=== PATIENT | male | born 1935 | race Caucasian/White ===

== ENCOUNTER 2016-10-14 05:01 | Inpatient (IN) | payer MEDICARE ==
[2016-10-03 12:29] LABS: BASOPHILS 0.4 %; BASOPHILS ABSOLUTE 0.02 10/3/uL (0.0-0.16); EOSINOPHILS 3.2 %; EOSINOPHILS ABSOLUTE 0.18 10/3/uL (0.0-0.53); HEMATOCRIT 34.4 % (40.0-51.0); HEMOGLOBIN 11.5 g/dL (13.6-17.8); IMMATURE GRANULOCYTES 0.2 %; IMMATURE GRANULOCYTES ABSOLUTE 0.01 10/3/uL (0.0-0.11); LYMPHOCYTES 29.3 %; LYMPHOCYTES ABSOLUTE 1.66 10/3/uL (0.67-4.30); MEAN CORPUS HGB CONC 33.4 g/dL (32.0-36.0); MEAN PLATELET VOLUME 10.1 fL (9.2-13.0); MONOCYTES 12.4 %; NEUTROPHILS 54.5 %; NEUTROPHILS ABSOLUTE 3.09 10/3/uL (2.02-8.40); PLATELET COUNT 218 10/3/uL (150-400); RED CELL COUNT 3.27 10/6/uL (4.7-6.1); WHITE BLOOD CELLS 5.7 10/3/uL (4.5-10.5)
[2016-10-03 12:32] LABS: MANUAL DIFF NO %; MEAN CORPUSCULAR HEMOGLOB 35.2 pg (26.0-34.0); MEAN CORPUSCULAR VOLUME 105.2 fL (80-100)
[2016-10-03 12:34] LABS: INTERNATIONAL NORMAL RATI 1.1 UNITS (-); PROTIME (NOT ORD) 13.7 SEC (12.0-14.5)
[2016-10-03 12:46] LABS: A/G RATIO 1.1 (0.7-1.9); ALKALINE PHOSPHATASE 84 U/L (45-117); CHLORIDE, SERUM 103 MMOL/L (96-112); CO2 (CARBON DIOXIDE) 26 MMOL/L (24-34); GFR AFRICAN AMERICAN 50 ML/MIN (>=60); GFR NON AFRICAN AMERICAN 43 ML/MIN (>=60); GLOBULIN 3.5 G/DL (2.5-4.1); GLUCOSE, SERUM 135 MG/DL (60-99); SGOT(AST) 37 U/L (5-40); SGPT(ALT) 34 U/L (5-65); SODIUM, SERUM 141 MMOL/L (135-148); TOTAL BILIRUBIN 0.7 MG/DL (0-1.2); TOTAL PROTEIN 7.5 G/DL (6.0-8.5)
[2016-10-03 12:48] LABS: BUN (BLOOD UREA NITROGEN) 29 MG/DL (6-23); CALCIUM, SERUM 10.2 MG/DL (8.5-10.4)
[2016-10-03 12:55] LABS: B NATRIURETIC PEPTIDE (BNP) 117.9 PG/ML (< 100.0)
[2016-10-03 12:58] LABS: ASCORBIC ACID (UR NOT ORDER) NEG (NEG); BILIRUBIN, URINE NEGATIVE (NEG); KETONE, URINE NEGATIVE (NEG); LEUKOCYTE ESTERASE(NOT OR NEG (NEG); WBC (NOT ORDERED) (RFLEX) < 1 (0-5)
[2016-10-03 22:10] LABS: GLYCOHEMOGLOBIN (HbA1c) 6.3 % (4.7-6.1)
--- NOTE | ~2016-10-14 | OP ---
Record Of Operation [address] [place]. [address] NAME: VIKKI LEMUS : 35 STATUS : ADM IN PAT#: [id number] AGE: 81 ADM/REG DATE : 10/14/16 MR#: [id number] REPORT SERV DATE: 10/14/16 DICTATED BY: PEÑA DIOR DATE: 10/14/16 REPORT STATUS : Draft TRANSCRIBED BY: MODL DATE: 10/14/16 DATE OF PROCEDURE: 10/14/2016 REPORT TITLE: Transcatheter Valve Implant Note BODY AFTER REPORT TITLE: PRIMARY LOCOMOTIVE ENGINEER ELECTRIC: Rod Alvarado M.D. PROCEDURES PERFORMED: 1. Transcatheter aortic valve implantation with a 34 mm Medtronic Evolut R from a right transfemoral approach. 2. Temporary transvenous pacemaker placement, left femoral vein to right ventricle. 3. Ascending aortogram. 4. Iliac angiogram. 5. ProGlide closure x2, right femoral artery. 6. ProGlide closure x1, left femoral artery. 7. Transthoracic echocardiography. SURGEONS: 1. Peña Dior M.D. 2. Flavio Vidal M.D. 3. Ty Cavazos M.D. 4. Dr. Camejo. ASSISTANTS: 1. Anila. 2. Trudy El M.D. 3. Keny Davidson M.D. SPECIMEN REMOVED: None. ANESTHESIA: MAC and local. ESTIMATED BLOOD LOSS: Less than 50 mL. FLUOROSCOPY TIME: 19.5 minutes, mGy 2321. CONTRAST: 100 mL, nonionic. COMPLICATIONS: None. PREOPERATIVE DIAGNOSES: 1. Severe aortic stenosis with suuo-zz-oqyjlhim aortic insufficiency by echocardiography, transesophageal echo, and dobutamine echo. 2. High surgical risk with STS score of 6.9% mortality and 29.4% morbidity and mortality. Record Of [address] [place]. [address] NAME: VIKKI LEMUS : 35 STATUS : ADM IN PAT#: [id number] AGE: 81 ADM/REG DATE : 10/14/16 MR#: [id number] REPORT SERV DATE: 10/14/16 DICTATED BY: PEÑA DIOR DATE: 10/14/16 REPORT STATUS : Draft TRANSCRIBED BY: MODL DATE: 10/14/16 He was seen by two cardiac surgeons, Dr. Camejo and Dr. Cavazos, who felt he was at high surgical risk. He had additional risk factors of coronary artery disease with previous coronary artery bypass grafting and patent grafts underlying the sternum. 3. Acute on chronic systolic congestive heart failure. 4. Moderately-depressed left ventricular systolic function with left ventricular ejection fraction of 35%. 5. Inadequate contractile reserve by dobutamine echo. 6. Coronary artery disease, status post coronary artery bypass grafting of reportedly five vessels in 1997 in [place]. 7. Status post permanent pacemaker placement, Saint Edmund device. 8. Prostate cancer with bony metastasis, followed at [place], [place]. 9. Cardiac risk factors including diabetes, hypertension, cholesterol, and former tobacco use. POSTOPERATIVE DIAGNOSES: 1. Severe aortic stenosis with dpdp-gc-bzptrnrt aortic insufficiency by echocardiography, transesophageal echo, and dobutamine echo. 2. High surgical risk with STS score of 6.9% mortality and 29.4% morbidity and mortality. He was seen by two cardiac surgeons, Dr. Camejo and Dr. Cavazos, who felt he was at high surgical risk. He had additional risk factors of coronary artery disease with previous coronary artery bypass grafting and patent grafts underlying the sternum. 3. Acute on chronic systolic congestive heart failure. 4. Moderately-depressed left ventricular systolic function with left ventricular ejection fraction of 35%. 5. Inadequate contractile reserve by dobutamine echo. 6. Coronary artery disease, status post coronary artery bypass grafting of reportedly five vessels in 1997 in [place]. 7. Status post permanent pacemaker placement, Saint Edmund device. 8. Prostate cancer with bony metastasis, followed at [place], [place]. 9. Cardiac risk factors including diabetes, hypertension, cholesterol, and former tobacco use. 10.No significant aortic insufficiency postoperatively. DATA FOR THE VALVE REGISTRY: Time of valve deployment 0942 hours. Total rapid pacing time is 0. Preprocedure: Mean gradient of 25, peak gradient of 30, cardiac output 7.3 L/minute, aortic valve area 0.9 sq cm. Postprocedure: Mean gradient of 0, peak gradient of 0, cardiac output of 6.9 L/minute, AI index was 28. BACKGROUND: Mr. Lemus is a very pleasant 81-year-old white man, patient of my partner, Dr. Jenny, with aortic stenosis. He has been undergoing evaluation for transcatheter valve implantation. He has known about aortic stenosis for the past year. He had cardiac catheterization last year, which revealed moderate aortic stenosis. He had progression of aortic stenosis by echo this year and underwent dobutamine echo demonstrating severe fixed aortic stenosis and inadequate contractile reserve. He has been complaining of dyspnea on exertion at less than 50-100 feet. He has had some chest pain, but no dizziness or syncope. He was offered transcatheter aortic valve implantation after discussing the risks, benefits, complications, and alternatives, and he wished to proceed. He was seen by two cardiac Record [place] [address] [place]. [address] NAME: VIKKI LEMUS : 35 STATUS : ADM IN [facility]#: [id number] AGE: 81 ADM/REG DATE : 10/14/16 MR#: [id number] REPORT SERV DATE: 10/14/16 DICTATED BY: PEÑA DIOR DATE: 10/14/16 REPORT STATUS : Draft TRANSCRIBED BY: DINA DATE: 10/14/[address] Camejo and Dr. Cavazos who felt he was at high surgical risk and his STS score likely underestimated risks due to patent underlying saphenous vein grafts. TECHNIQUE: After informed written consent was obtained from Mr. Lemus, he was brought to the hybrid suite on the morning of 10/14/2016 in the fasting state. A time-out was performed and correct patient and operative plan were confirmed. Both groin areas were prepped and draped in the usual sterile fashion. Local anesthesia was accomplished using 1% lidocaine. Using modified Seldinger technique and a micropuncture set, a 6-Beninese sheath was placed in the left femoral artery, 6-Beninese sheath was placed in the left femoral vein, and a 6-Beninese sheath was placed in the right femoral artery, all with excellent blood return. The sheaths were double flushed and left in place. Using the micro set, femoral angiograms were performed which demonstrated good sticks in the common femoral artery, thought suitable for closure. Next, a temporary transvenous pacemaker was placed from the left femoral vein to the right ventricle and the threshold was checked, which was less than 0.8 milliamps. This was set aside. Next, a pigtail catheter was advanced to the central aorta under fluoroscopic guidance. Guidewire was withdrawn. Catheter was double flushed. Pressure recording was obtained. The valve angle was obtained. The patient was heparinized to an ACT of approximately 250. Next, the 6-Beninese AL1 diagnostic catheter was used and a straight wire was used to cross the aortic valve. This occurred with relative ease. The catheter was then brought to the LV position and exchanged over an exchange J guidewire for a [place] dual-lumen pigtail catheter. Simultaneous LV and aortic pressures were then obtained. Cardiac output was then performed. A preshaped Lunderquist double curve wire was placed in the left ventricle and the catheter was withdrawn from the body. Next, the right femoral artery sheath was removed, and using a dilator, the [employer] in-line sheath was placed in the right femoral artery and the CoreValve Evolut R 34 mm valve was selected. This was viewed under fluoroscopy. The paddles looked good. The valve was then advanced through the sheath to the descending aorta and then advanced around the aortic arch to the aortic valve position. Positioning was confirmed and the angles were changed such that the parallax was eliminated. Deployment sequence was then commenced initially slowly with test injections to be sure the valve appeared to be in proper position, approximately 2 mm depth. Once the valve had reached a critical deployment, pressure fell, the valve was deployed more rapidly until it was near disconnection and the pressure had recovered. The valve was then deployed very slowly using test injections. Once the valve had been completely deployed, test injection revealed some aortic insufficiency. This was thought to be possibly due to the wire. The wire was then brought back across the valve and angiogram was performed which demonstrated no significant aortic insufficiency. Transthoracic echo was then performed which demonstrated good valve function with good opening and no significant AI. The pigtail catheter was then placed across the valve and LV to AO pullback was performed. There was no significant gradient. The valve deployment mechanism and in-line sheath were then removed from the body. The ProGlide sutures were tied with good hemostasis. There was no bleeding and no hematoma. Femoral angiogram was performed which demonstrated no evidence of dissection or distal embolization and good patency of the right common femoral artery. Next, the pacing catheter was removed from the body. The femoral venous sheath was left in place. The left femoral artery sheath was removed and ProGlide closure was deployed with good hemostasis. There was no bleeding and no hematoma. The patient tolerated the procedure well without apparent complication. Record Of Operation [place] [id number] [facility] [place] [address] NAME: ATA,VIKKI AGRAWAL : 35 STATUS : ADM IN [facility]#: [id number] AGE: 81 ADM/REG DATE : 10/14/16 MR#: [id number] REPORT SERV DATE: 10/14/16 DICTATED BY: PEÑA DIOR DATE: 10/14/16 REPORT STATUS : Draft TRANSCRIBED BY: DINA DATE: 10/14/16 He was then returned to his room in good condition for access management and his permanent Saint Edmund pacemaker, plans were made for resumption of his normal settings. The recommendations were for aspirin and Plavix for at least six months and aspirin indefinitely and risk factor modification. ZULMA/DINA Peña Dior M.D. / [id number] CC: Mitali Ochoa MD Mario Mariani, M.D.
--- NOTE | ~2016-10-14 | ECH ---
Echocardiogram [place] [address] [place]. [address] NAME: VIKKI BERUMEN : 35 STATUS : ADM IN PAT#: [id number] AGE: 81 ADM/REG DATE : 10/14/16 MR#: [id number] REPORT SERV DATE: 10/15/16 DICTATED BY: KENY DAVIDSON DATE: 10/14/16 REPORT STATUS : Draft TRANSCRIBED BY: MODL DATE: 10/14/16 INDICATIONS: This is limited echocardiogram for pre and postprocedural assessment immediately before and after transcatheter aortic valve replacement. PROCEDURE: Prior to transcatheter aortic valve replacement with Medtronic core valve, echocardiographic images demonstrated a visually estimated LVEF of 40% with inferior hypocontractility. The aortic valve was trileaflet and sclerotic with severely restricted mobility. The initial mean gradient was 32 mmHg with a calculated aortic valve area of 0.9 cm2. Immediately following successful placement of the transcatheter aortic valve replacement, images revealed a well-positioned bioprosthetic transcatheter aortic valve. There was no aortic regurgitation seen in the parasternal long axis, parasternal short axis, and apical long axis and 5 chamber views. Spectral Doppler velocity peak was 2.4 m/sec with a post mean gradient of 10 mmHg. The postprocedure calculated aortic valve area was approximately 2.5 cm2. COMPLICATIONS: None. Please see the full surgical report for additional details. CONCLUSION: SUCCESSFUL BIOPROSTHETIC TRANSCATHETER AORTIC VALVE REPLACEMENT, MEDTRONIC CORE VALVE, WITH A POSTPROCEDURE MEAN GRADIENT OF 10 MMHG AND AREA OF 2.5 CM2. AEA/DINA Keny Davidson M.D. / [id number] CC: Ty Cavazos M.D.
--- NOTE | ~2016-10-14 | OP ---
Record Of Operation [address] [address] NAME: VIKKI BERUMEN : 35 STATUS : ADM IN PAT#: [id number] AGE: 81 ADM/REG DATE : 10/14/16 MR#: [id number] REPORT SERV DATE: 10/14/16 DICTATED BY: JOSE CAVAZOS DATE: 10/14/16 REPORT STATUS : Draft TRANSCRIBED BY: MODLourdes DATE: 10/14/16 DATE OF PROCEDURE: 10/14/2016 PREOPERATIVE DIAGNOSES: 1. Aortic valve stenosis. 2. History of coronary artery disease status post previous coronary artery bypass grafting. 3. Sreqk-ec-cifswqz diastolic congestive heart failure. 4. Chronic congestive heart failure with poor left ventricular reserve. 5. Type 2 ogi-ucrxred-brkxmnihq diabetes mellitus. 6. Metastatic prostate carcinoma. 7. History of sick sinus syndrome, status post previous pacemaker. 8. Hypertension. 9. Hyperlipidemia. 10.Obesity. POSTOPERATIVE DIAGNOSES: 1. Aortic valve stenosis. 2. History of coronary artery disease status post previous coronary artery bypass grafting. 3. Krspn-qr-diokvac diastolic congestive heart failure. 4. Chronic congestive heart failure with poor left ventricular reserve. 5. Type 2 yii-odevkmj-hazgxedwa diabetes mellitus. 6. Metastatic prostate carcinoma. 7. History of sick sinus syndrome, status post previous pacemaker. 8. Hypertension. 9. Hyperlipidemia. 10.Obesity. PROCEDURE PERFORMED: 1. Right transfemoral transarterial aortic valve replacement using a 3 mm to 4 mm CoreValve (pericardial). 2. Left transfemoral temporary transvenous pacemaker placement. 3. ProGlide closure of the right femoral artery x2, left femoral artery x1. 4. Ascending aortography. 5. Right aortoiliofemoral angiogram with runoff. 6. Transthoracic echocardiography. SURGEONS: 1. Jose Cavazos M.D. 2. Larry Dior M.D. 3. Flavio Vidal M.D. 4. Dr. Camejo. HOSTED SERVICES ANALYST: Keny Davidson M.D. Record Of Operation [address] [address] NAME: VIKKI BERUMEN : 35 STATUS : ADM IN PAT#: [id number] AGE: 81 ADM/REG DATE : 10/14/16 MR#: [id number] REPORT SERV DATE: 10/14/16 DICTATED BY: JOSE CAVAZOS DATE: 10/14/16 REPORT STATUS : Draft TRANSCRIBED BY: DINA DATE: 10/14/16 ANESTHESIA: MAC sedation with Dr. Nieto. DIGITAL CAMPAIGN MANAGER: Rod Alvarado M.D. INDICATIONS: This is an 81-year-old gentleman who underwent previous bypass grafting in 1991. He has been seen by Dr. Alvarado for aortic valve stenosis and has had progression of his shortness of breath. He has been evaluated and echocardiography has documented increasing velocities and gradients across the aortic valve. Most recent echo demonstrated reduced ventricular function with an EF of 45%. His peak velocity was 3.8 m/sec with a mean gradient of 30 mmHg and valve area of 0.9 sq cm. The patient has significant symptomatology with shortness of breath with minimal exertion and problems with early fatigue and poor strength. Because of his previous bypass surgery and history of prostate carcinoma with metastatic disease of the ribcage and age, he was felt to be a poor candidate for open aortic valve replacement. He was discussed at the TAVR Conference and consideration for TAVR was performed. Previous catheterization last November demonstrated patent MAURICE to the LAD and a vein graft patent to the right coronary artery and ramus intermedius with occluded vein graft somewhere on the back of the heart. Predicted risk of mortality by STS database statistics is 6.7%. The patient was felt to be at very elevated risk for surgery. We discussed possible TAVR procedure with the patient and his family. After discussing operations, indication, risks, they wished to proceed. FINDINGS AT OPERATION: 1. Total time of rapid pacing is 0 seconds. 2. Actual time of TAVR deployment was 0942 hours. 3. Cardiac output pre-deployment was 7.3 L/minute. Post-deployment was 6.9 L/minute. 4. Pre-deployment valve area is 0.93. Post-deployment valve area is 6.9 sq cm. 5. Pre-deployment aortic pressures: Systolic 122, diastolic 56, mean 77 mmHg. 6. Postimplant aortic pressures: Systolic 127, diastolic 45, mean 68 mmHg. 7. Pre-implant AV gradient was mean of 25 and peak of 30 mmHg. Postimplant aortic gradient, mean 0, peak 0 mmHg. 8. Volume of contrast used 100 mL. 9. Fluoro time was 19.5 minutes. 10.Estimated blood loss 50 mL. 11.Total mGy was 2321. 12.Aortic index was 28. 13.Left echocardiography demonstrated just trivial aortic insufficiency with valve positioned well. 14.Right aortoiliofemoral angiogram with runoff demonstrated minimal effect from ProGlide closure of the right femoral artery. 15.The patient had good pedal pulses bilaterally by Doppler. PATHOLOGIC SPECIMENS: None. DESCRIPTION OF PROCEDURE: The patient was brought to the operating suite and laid in the supine position on the hybrid operating table. The patient's abdomen and legs were prepped with Hibiclens and ChloraPrep and draped with Ioban and sterile sheets. Record Of Operation [place] [address] [place]. [address] NAME: VIKKI BERUMEN : 35 STATUS : ADM IN [facility]#: [id number] AGE: 81 ADM/REG DATE : 10/14/16 MR#: [id number] REPORT SERV DATE: 10/14/16 DICTATED BY: JOSE CAVAZOS DATE: 10/14/16 REPORT STATUS : Draft TRANSCRIBED BY: DINA DATE: 10/14/16 Access to the left femoral artery and vein were obtained using microwire with contrast angiography of the left femoral artery confirmed placement. A 6-[place] Zealander introducers were placed in both vessels. Then, using the same micropuncture and micro glidewire technique, right femoral artery was accessed and 6-[place]ander introducer was placed in this site. Transfemoral temporary venous pacemaker was placed up the left femoral vein. Then, under fluoroscopic guidance was positioned in right ventricle. Outputs and capture were confirmed with temporary pacing. Then, the pigtail catheter was placed into the right and noncoronary sinus, position was confirmed with some angiography to reaffirm deployment angles for valve. Then, long guidewire was placed over in the right femoral 6-[place]alander sheath and this removed. Two ProGlides were then deployed in the right femoral artery. An access will be secured with an 8-[place] introducer. Then, an exchange wire was placed in the ascending aorta and AL1 catheter placed. We then used a straight guidewire to cross the valve. This catheter was then placed across the valve and exchanged for a pigtail catheter. Then, the Lunderquist wire was placed across the valve and the catheter removed. Then, the right femoral artery was dilated using a 16-[place]ander dilator. And the CoreValve, which was loaded onto the introducer system, was placed into the right femoral artery and the sheath advanced across into the descending thoracic aorta. The valve was then advanced up into the descending thoracic aorta and across the aortic arch and down and across the valve. Valve positioning was confirmed using the power injector. Then, the valve was deployed in the usual manner and no temporary venous pacing was needed. During deployment of valve, we positioned very well. Once the valve was positioned, it was fully deployed. Then, the delivery system was backed into the descending thoracic aorta. Contrast aortography demonstrated mild aortic insufficiency. On echocardiography, this was seen as probable impingement of one of the leaflets of the valve with a Lunderquist wire. A Lunderquist wire was then removed from across the valve and re-examination of the valve with echocardiography demonstrated no insufficiency. Then, the valve and induction system and the sheaths were removed. The ProGlide closures were then deployed in the right femoral artery with good hemostasis. This was performed as Lunderquist wire was removed. Pigtail catheter was then backed down into the bifurcation of the aorta where a contrast angiography demonstrated good runoff of the right iliofemoral system with no contrast extravasation or stenosis of the femoral artery. A ProGlide closure was then used to close the left femoral arterial access. The temporary pacing catheter was removed. The patient tolerated the procedure well. There were no complications. DISPOSITION: The patient was taken to the intensive care unit in stable condition. DOMINGO/DINA Jose Cavazos M.D. Record Of Operation [address] [address] NAME: CASE,VIKKI AGRAWAL : 35 STATUS : ADM IN PAT#: [id number] AGE: 81 ADM/REG DATE : 10/14/16 MR#: [id number] REPORT SERV DATE: 10/14/16 DICTATED BY: JOSE CAVAZOS DATE: 10/14/16 REPORT STATUS : Draft TRANSCRIBED BY: DINA DATE: 10/14/16 / [id number] CC: Mitali Ochoa M.D. Gregg Shander, M.D. Allen E Atchley, M.D. John Carter Hemphill, MD
[~2016-10-14 05:01] MED LIST: ALEVE220 MG PO; ASAB PO; COREG3 PO; DSS PO; ENZALUTAMIDE 120 MG PO; FERROUS SULF325 M1 PO; FIBERCON PO; GLUCOPHAGE PO; GLUCOTRO10 PO; GLUCPH8 PO; IMDUR30 PO; KLOR-CON M2020 MEQ PO; L40 PO; LIPITOR20 PO; MAGOX4 PO; NITROSTAT0.4 MG SL; OS500+D PO; PRIN10 PO; VITAMIN B-121000 MC1 SL; XGEVA120 MG/1.7 SC; [UNRECOGNIZED DRUG - OTHER] IJ
[2016-10-14 12:05] LABS: HEMOGLOBIN 10.1 g/dL (13.6-17.8); PLATELET COUNT 154 10/3/uL (150-400)
[2016-10-14 12:06] LABS: HEMATOCRIT 29.4 % (40.0-51.0)
[2016-10-14 12:12] LABS: INTERNATIONAL NORMAL RATI 1.2 UNITS (-); PROTIME (NOT ORD) 15.1 SEC (12.0-14.5)
[2016-10-14 12:13] LABS: PARTIAL THROMBO TIME 65.9 SEC (22.5-37.2)
[2016-10-14 12:17] LABS: CHLORIDE, SERUM 103 MMOL/L (96-112); CO2 (CARBON DIOXIDE) 24 MMOL/L (24-34); CREATININE 1.03 MG/DL (0.70-1.30); GFR AFRICAN AMERICAN 79 ML/MIN (>=60); GFR NON AFRICAN AMERICAN 68 ML/MIN (>=60); POTASSIUM, SERUM 4.3 MMOL/L (3.5-5.3); SODIUM, SERUM 137 MMOL/L (135-148)
[2016-10-14 12:18] LABS: BUN (BLOOD UREA NITROGEN) 18 MG/DL (6-23); CALCIUM, SERUM 8.1 MG/DL (8.5-10.4); GLUCOSE, SERUM 164 MG/DL (60-99)
[2016-10-14 16:35] LABS: HEMATOCRIT 29.5 % (40.0-51.0); HEMOGLOBIN 9.7 g/dL (13.6-17.8)
[2016-10-14 17:09] LABS: BUN (BLOOD UREA NITROGEN) 17 MG/DL (6-23); CALCIUM, SERUM 8.1 MG/DL (8.5-10.4); CHLORIDE, SERUM 103 MMOL/L (96-112); CO2 (CARBON DIOXIDE) 24 MMOL/L (24-34); CREATININE 0.96 MG/DL (0.70-1.30); GFR AFRICAN AMERICAN 86 ML/MIN (>=60); GFR NON AFRICAN AMERICAN 74 ML/MIN (>=60); GLUCOSE, SERUM 87 MG/DL (60-99); SODIUM, SERUM 136 MMOL/L (135-148)
[2016-10-14 23:37] LABS: HEMATOCRIT 27.4 % (40.0-51.0); HEMOGLOBIN 9.4 g/dL (13.6-17.8)
[2016-10-14 23:55] LABS: BUN (BLOOD UREA NITROGEN) 16 MG/DL (6-23); CALCIUM, SERUM 7.7 MG/DL (8.5-10.4); CHLORIDE, SERUM 104 MMOL/L (96-112); CO2 (CARBON DIOXIDE) 24 MMOL/L (24-34); CREATININE 0.96 MG/DL (0.70-1.30); GFR AFRICAN AMERICAN 86 ML/MIN (>=60); GFR NON AFRICAN AMERICAN 74 ML/MIN (>=60); POTASSIUM, SERUM 4.3 MMOL/L (3.5-5.3); SODIUM, SERUM 137 MMOL/L (135-148)
[2016-10-14 23:57] LABS: GLUCOSE, SERUM 106 MG/DL (60-99)
[2016-10-15 03:20] LABS: BASOPHILS 0.1 %; BASOPHILS ABSOLUTE 0.01 10/3/uL (0.0-0.16); EOSINOPHILS 1.8 %; EOSINOPHILS ABSOLUTE 0.14 10/3/uL (0.0-0.53); HEMATOCRIT 28.1 % (40.0-51.0); HEMOGLOBIN 9.6 g/dL (13.6-17.8); IMMATURE GRANULOCYTES 0.1 %; IMMATURE GRANULOCYTES ABSOLUTE 0.01 10/3/uL (0.0-0.11); LYMPHOCYTES 11.9 %; LYMPHOCYTES ABSOLUTE 0.91 10/3/uL (0.67-4.30); MANUAL DIFF NO %; MEAN CORPUS HGB CONC 34.2 g/dL (32.0-36.0); MEAN CORPUSCULAR HEMOGLOB 34.8 pg (26.0-34.0); MEAN CORPUSCULAR VOLUME 101.8 fL (80-100); MONOCYTES 13.3 %; MONOCYTES ABSOLUTE 1.01 10/3/uL (0.21-1.20); NEUTROPHILS 72.8 %; NEUTROPHILS ABSOLUTE 5.54 10/3/uL (2.02-8.40); PLATELET COUNT 133 10/3/uL (150-400); RED CELL COUNT 2.76 10/6/uL (4.7-6.1); WHITE BLOOD CELLS 7.6 10/3/uL (4.5-10.5)
[2016-10-15 03:26] LABS: INTERNATIONAL NORMAL RATI 1.2 UNITS (-); PARTIAL THROMBO TIME 30.4 SEC (22.5-37.2); PROTIME (NOT ORD) 14.6 SEC (12.0-14.5)
[2016-10-15 03:33] LABS: BUN (BLOOD UREA NITROGEN) 16 MG/DL (6-23); CALCIUM, SERUM 7.7 MG/DL (8.5-10.4); CHLORIDE, SERUM 103 MMOL/L (96-112); CO2 (CARBON DIOXIDE) 24 MMOL/L (24-34); CREATININE 1.05 MG/DL (0.70-1.30); GFR AFRICAN AMERICAN 77 ML/MIN (>=60); GFR NON AFRICAN AMERICAN 66 ML/MIN (>=60); GLUCOSE, SERUM 95 MG/DL (60-99); POTASSIUM, SERUM 4.2 MMOL/L (3.5-5.3); SODIUM, SERUM 137 MMOL/L (135-148)
[2016-10-15] MEDS ORDERED: PLAVIX PO (14:58)
== END 2016-10-15 15:00 | disposition home or self-care (01) | DRG 266 ==
LOC: SDC/OF 05:01 → CVICU 10:53
PROVIDERS: Thoracic Surgery (Cardiothoracic Vascular Surgery)
PROC: B246YZZ Ultrasonography of Right and Left Heart using Other Contrast (ICD-10-PCS; 2016-10-14)
PROC: 02RF38Z Replacement of Aortic Valve with Zooplastic Tissue, Percutaneous Approach (ICD-10-PCS; principal; 2016-10-14 07:30)
DX: I35.0 Nonrheumatic aortic (valve) stenosis (principal); I50.33 Acute on chronic diastolic (congestive) heart failure; I49.5 Sick sinus syndrome; N18.3 Chronic kidney disease, stage 3 (moderate); E11.9 Type 2 diabetes mellitus without complications; Z00.6 Encounter for examination for normal comparison and control in clinical research program; I25.10 Atherosclerotic heart disease of native coronary artery without angina pectoris; Z95.0 Presence of cardiac pacemaker; E78.5 Hyperlipidemia, unspecified; E66.9 Obesity, unspecified; Z79.899 Other long term (current) drug therapy; Z79.82 Long term (current) use of aspirin; Z79.84 Long term (current) use of oral hypoglycemic drugs; I12.9 Hypertensive chronic kidney disease with stage 1 through stage 4 chronic kidney disease, or unspecified chronic kidney disease
CPT/HCPCS: 36415; 71010; 71020; 80048; 80053; 81001; 82330; 82803; 82947; 82962; 83036; 83735; 83880; 84132; 84295; 85014; 85018; 85025; 85049; 85347; 85610; 85730; 86850; 86900; 86901; 86920; 87641; 93005; A9270-GY; C1894; C8929; J0690; J1644; J2250; J2370; J2720; J3010; Q9957

== ENCOUNTER 2016-10-16 11:04 | Emergency (ER) | payer MEDICARE ==
[~2016-10-16 11:04] MED LIST changes: +PLAVIX PO
== END 2016-10-16 13:34 | disposition home or self-care (01) ==
LOC: ER 11:04
DX: S11.90XD Unspecified open wound of unspecified part of neck, subsequent encounter (principal); J30.2 Other seasonal allergic rhinitis; I50.9 Heart failure, unspecified; Z95.5 Presence of coronary angioplasty implant and graft; E11.9 Type 2 diabetes mellitus without complications; Z85.46 Personal history of malignant neoplasm of prostate; Z85.830 Personal history of malignant neoplasm of bone; Z79.82 Long term (current) use of aspirin; Z79.84 Long term (current) use of oral hypoglycemic drugs; Z79.899 Other long term (current) drug therapy
CPT/HCPCS: 99283

== ENCOUNTER 2016-10-17 15:13 | Emergency (ER) | payer MEDICARE ==
[2016-10-17 16:19] LABS: BASOPHILS 0.1 %; BASOPHILS ABSOLUTE 0.01 10/3/uL (0.0-0.16); EOSINOPHILS 2.7 %; ER CBC TAT 0 Hrs 03 Mins; HEMOGLOBIN 10.8 g/dL (13.6-17.8); IMMATURE GRANULOCYTES 0.4 %; IMMATURE GRANULOCYTES ABSOLUTE 0.03 10/3/uL (0.0-0.11); LYMPHOCYTES 17.4 %; LYMPHOCYTES ABSOLUTE 1.27 10/3/uL (0.67-4.30); MEAN CORPUS HGB CONC 33.8 g/dL (32.0-36.0); MEAN CORPUSCULAR HEMOGLOB 34.5 pg (26.0-34.0); MEAN CORPUSCULAR VOLUME 102.2 fL (80-100); MONOCYTES ABSOLUTE 0.73 10/3/uL (0.21-1.20); NEUTROPHILS 69.4 %; NEUTROPHILS ABSOLUTE 5.06 10/3/uL (2.02-8.40); RBC DISTRIBUTION WIDTH 14.1 % (12.0-16.0); RED CELL COUNT 3.13 10/6/uL (4.7-6.1); WHITE BLOOD CELLS 7.3 10/3/uL (4.5-10.5)
[2016-10-17 16:20] LABS: MANUAL DIFF NO %; PLATELET COUNT 184 10/3/uL (150-400)
[2016-10-17 16:28] LABS: PARTIAL THROMBO TIME 27.4 SEC (22.5-37.2); PROTIME (NOT ORD) 13.1 SEC (12.0-14.5)
[2016-10-17 16:34] LABS: BUN (BLOOD UREA NITROGEN) 23 MG/DL (6-23); CALCIUM, SERUM 8.3 MG/DL (8.5-10.4); CHLORIDE, SERUM 104 MMOL/L (96-112); CO2 (CARBON DIOXIDE) 27 MMOL/L (24-34); CREATININE 1.25 MG/DL (0.70-1.30); GFR AFRICAN AMERICAN 62 ML/MIN (>=60); GFR NON AFRICAN AMERICAN 54 ML/MIN (>=60); GLUCOSE, SERUM 173 MG/DL (60-99); POTASSIUM, SERUM 4.8 MMOL/L (3.5-5.3); SODIUM, SERUM 138 MMOL/L (135-148)
[2016-10-17 16:35] LABS: CHEST PAIN PROFILE TAT 0 Hrs 19 Mins; TROPONIN I 0.09 NG/ML (<0.05)
== END 2016-10-17 18:15 | disposition home or self-care (01) ==
LOC: ER 15:13
PROVIDERS: Hospitalist
DX: I97.89 Other postprocedural complications and disorders of the circulatory system, not elsewhere classified (principal); I11.0 Hypertensive heart disease with heart failure; I50.9 Heart failure, unspecified; Z95.1 Presence of aortocoronary bypass graft; Z85.46 Personal history of malignant neoplasm of prostate; E11.9 Type 2 diabetes mellitus without complications; I25.10 Atherosclerotic heart disease of native coronary artery without angina pectoris; E78.5 Hyperlipidemia, unspecified; Z79.899 Other long term (current) drug therapy; Z79.82 Long term (current) use of aspirin; Z79.84 Long term (current) use of oral hypoglycemic drugs
CPT/HCPCS: 71010; 80048; 83735; 84484; 85025; 85610; 85730; 93005; 99284